=== PATIENT | female | born 1980 | race Caucasian/White ===

== ENCOUNTER 2017-06-16 22:16 | Emergency (ER) | payer BC, MEDICAID, OTHER ==
[~2017-06-16] VITALS: Ht 154.9 cm; Wt 74.8 kg
[~2017-06-16 22:16] MED LIST: CEPH-38 PO; IBP600T1 PO; OCP; OXYC-12 PO; TRAM-21 PO; TYLENOL SINUS
--- OUTSIDE RECORDS SUMMARY | 2017-06-16 22:21 | XMS REPORT ---
Author Author NAKITA CHIN Organization [facility] Address [address] [place] [address] Care Team Providers Care Garment Looper Name Role Phone NAKITA CHIN Unavailable PROBLEMS Type Condition ICD9-CM Code [id number] Code Onset Dates Condition Status SNOMED Code Problem Allergic rhinitis, unspecified allergic rhinitis trigger, unspecified rhinitis seasonality J30.9 Active 70521606 Problem Unspecified infective otitis externa 380.10 Active 17429164 Problem Acute pharyngitis 462 Active 252319770 Problem Acute upper respiratory infections of unspecified site 465.9 Active [id number] ALLERGIES No Known Allergies SOCIAL HISTORY Never Assessed PLAN OF CARE Activity Details Follow Up prn Reason: VITAL SIGNS Height 61 in 2016-03-27 Weight 155.2 lbs 2016-03-27 Temperature 97.3 degrees Fahrenheit 2016-03-27 Heart Rate 80 bpm 2016-03-27 Respiratory Rate 20 2016-03-27 BMI 29.32 kg/m2 2016-03-27 Blood pressure systolic 118 mmHg 2016-03-27 Blood pressure diastolic 80 mmHg 2016-03-27 MEDICATIONS Unknown Medications RESULTS No Results PROCEDURES No Known procedures IMMUNIZATIONS No Known Immunizations MEDICAL (GENERAL) HISTORY Type Description Date Surgical History C- section 2000 Surgical History 2007 Surgical History 2010
--- OUTSIDE RECORDS SUMMARY | 2017-06-16 22:21 | XMS REPORT ---
Author Author KAT RUDOLPH [facility] Address [address] [place] [address] Care Team Providers Care Senior Electrical Design Engineer Name Role Phone KAT RUDOLPH Unavailable PROBLEMS Type Condition ICD9-CM Code [id number] Code Onset Dates Condition Status SNOMED Code Problem Allergic rhinitis, unspecified allergic rhinitis trigger, unspecified rhinitis seasonality J30.9 Active 79880307 Problem Unspecified infective otitis externa 380.10 Active 30754877 Problem Acute pharyngitis 462 Active 858474555 Problem Acute upper respiratory infections of unspecified site 465.9 Active [id number] ALLERGIES No Information SOCIAL HISTORY Never Assessed PLAN OF CARE VITAL SIGNS MEDICATIONS No Known Medications RESULTS No Results PROCEDURES No Known procedures IMMUNIZATIONS No Known Immunizations MEDICAL (GENERAL) HISTORY Type Description Date Surgical History C- section 2000 Surgical History 2007 Surgical History 2010
--- OUTSIDE RECORDS SUMMARY | 2017-06-16 22:21 | XMS REPORT | Continuity of Care Document ---
Author Author [facility] Address Unknown Phone Unavailable Allergies Active Description Code Type Severity Reaction Onset Reported/Identified Relationship to Patient Clinical Status Yes No Known Drug Allergies [id number] Drug Allergy Unknown N/A 07/08/2007 Yes NKANo Known Allergies NKA Miscellaneous Allergy Mild N/A 09/10/2008 Medications There is no data. Problems Date Dx Coded Attending Type Code Diagnosis Diagnosed By 09/10/2008 Ot 462 11/09/2010 Ot 654.21 11/09/2010 Ot 656.61 11/09/2010 Ot V06.1 11/09/2010 Ot V27.0 07/29/2012 465.9 UPPER RESPIRATORY INFECTION 07/29/2012 SHANTHI BECKMAN APRN 465.9 UPPER RESPIRATORY INFECTION 09/16/2013 SHANTHI BECKMAN APRN 380.10 OTITIS EXTERNA LEFT 09/16/2013 SHANTHI BECKMAN APRN 462 ACUTE PHARYNGITIS 05/24/2014 Ot 654.23 05/24/2014 Ot V72.83 05/24/2014 Ot V22.1 05/24/2014 Ot 654.23 05/24/2014 Ot V72.83 05/24/2014 Ot V74.8 Procedures Code [place] [id number] STREP A (IN-HOUSE) 09/16/2013 Results There is no data. Encounters ACCT No. Visit Date/Time Discharge Status Pt. Type Provider Facility Loc./Unit Complaint [id number] 09/16/2013 16:49:00 09/16/2013 23:59:59 [facility] Outpatient SHANTHI BECKMAN APRN [id number] 07/29/2012 09:19:00 Document Registration [id number] 05/24/2014 10:45:00 Document Registration [id number] 05/24/2014 10:45:00 Document Registration [id number] 05/24/2014 10:45:00 Document Registration [id number] 05/24/2014 10:44:00 Document Registration [id number] 05/24/2014 10:44:00 Document Registration [id number] 05/24/2014 10:44:00 Document Registration [id number] 11/07/2010 05:43:00 Document Registration [id number] 11/01/2010 12:51:00 Document Registration [id number] 11/19/2016 10:00:00 11/19/2016 23:59:59 [facility] Outpatient KAT RUDOLPH DO [facility]
[2017-06-16] MEDS ORDERED: NORG1TAB14 PO (23:04)
--- NOTE | 2017-06-16 23:31 | ED Lower Extremity ---
General Chief Complaint: Lower Extremity Stated Complaint: R LEG PAIN/SWELLING Nursing Triage Note: PT PRESENTS TO ER WITH COMPLAINT OF RIGHT LEG PAIN AND SWELLING. STATES THE PAIN STARTED YESTERDYA AND HAS PROGRESSIVELY WORSENED. STATES SHE HAS ALSO NOTICED SWELLING. Nursing Sepsis Screen: No Definite Risk Source: patient Exam Limitations: no limitations History of Present Illness Date Seen by Provider: Jun 16, 2017 Time Seen by Provider: 23:19 Initial Comments The patient presents to ER by private conveyance with a chief complaint that she noticed today her left leg was swollen more than the right leg. It is not red nor painful. She says sometimes she hurts a little bit when she stands on it and she is on her feet all day at work. She does not smoke cigarettes or have a history of DVTs or clots or pulmonary embolisms in herself or her primary family however she says she takes oral contraceptives and is concerned her she might have a clot so she came to have it checked out. She's had no recent injury, fall or other trauma. She is not coughing nor does she feel short of breath. Allergies and Home Medications Allergies Coded Allergies: NKANo Known Allergies (Unverified Allergy, Mild, 09/10/08) No Known Drug Allergies (Verified , 07/08/07) Patient Home Medication List Home Medication List Reviewed: Yes Constitutional: No chills, No fever EENTM: No ear discharge, No ear pain Respiratory: No cough, No short of breath Cardiovascular: No chest pain, No palpitations Gastrointestinal: No abdominal pain, No constipation, No nausea Genitourinary: No discharge, No dysuria Past Uehbrqu-Xxxrwf-Wqzqid Hx Patient Social History Alcohol Use: Denies Use Recreational Drug Use: No Smoking Status: Never a Smoker Recent Foreign Travel: No Contact w/Someone Who Travel: No Recent Infectious Disease Expo: No Recent Hopitalizations: No () Immunizations Up To Date PED Vaccines UTD: Yes Past Medical History Surgeries: Yes (2 C-SECTIONS) Respiratory: No Cardiac: No Neurological: No Reproductive Disorders: Yes Sexually Transmitted Disease: Yes (HPV) Gastrointestinal: Yes Musculoskeletal: No Endocrine: No Psychosocial: Yes Blood Disorders: No Physical Exam Vital Signs Vital Signs - First Documented 06/16/17 22:54 Temp 98.0 Pulse 104 Resp 20 B/P (MAP) 153/101 (118) Pulse Ox 100 O2 Delivery Room Air Capillary Refill : Less Than 3 Seconds General Appearance: WD/WN, no apparent distress HEENT: PERRL/EOMI, pharynx normal Neck: non-tender, normal inspection Cardiovascular: normal peripheral pulses, regular rate, rhythm Respiratory: chest non-tender, lungs clear, normal breath sounds Gastrointestinal: normal bowel sounds, non tender, soft Hips: bilateral hip non-tender, bilateral hip normal inspection, bilateral hip normal range of motion, bilateral hip no evidence of injury Legs: bilateral leg non-tender, bilateral leg normal inspection, bilateral leg normal range of motion, bilateral leg no evidence of injury, bilateral leg other (Bilateral legs measure 37.57 m rate is diameter in the calf. Negative for Homans sign. No nodularity, tenderness, erythema in either calf.) Knees: bilateral knee non-tender, bilateral knee normal inspection, bilateral knee normal range of motion, bilateral knee no evidence of injury Ankles: bilateral ankle non-tender, bilateral ankle normal inspection, bilateral ankle normal range of motion, bilateral ankle no evidence of injury Progress/Results/Core Measures Lab Results Laboratory Tests Test 06/16/17 23:33 Range/Units White Blood Count 11.4 H 4.3-11.0 10^3/uL Red Blood Count 4.78 4.35-5.85 10^6/uL Hemoglobin 13.1 11.5-16.0 G/DL Hematocrit 40 35-52 % Mean Corpuscular Volume 84 80-99 FL Mean Corpuscular Hemoglobin 27 25-34 PG Mean Corpuscular Hemoglobin Concent 33 32-36 G/DL Red Cell Distribution Width 12.6 10.0-14.5 % Platelet Count 309 130-400 10^3/uL Mean Platelet Volume 9.8 7.4-10.4 FL Neutrophils (%) (Auto) 61 42-75 % Lymphocytes (%) (Auto) 31 12-44 % Monocytes (%) (Auto) 6 0-12 % Eosinophils (%) (Auto) 1 0-10 % Basophils (%) (Auto) 0 0-10 % Neutrophils # (Auto) 6.9 1.8-7.8 X 10^3 Lymphocytes # (Auto) 3.6 1.0-4.0 X 10^3 Monocytes # (Auto) 0.7 0.0-1.0 X 10^3 Eosinophils # (Auto) 0.1 0.0-0.3 10^3/uL Basophils # (Auto) 0.0 0.0-0.1 10^3/uL D-Dimer 0.29 0.00-0.49 UG/ML My Orders Orders - CARLOS SLOAN Cbc With Automated Diff (06/16/17 23:21) Fibrin Degradation Products (06/16/17 23:21) Saline Lock/Iv-Start (06/16/17 23:36) Vital Signs/I&O 06/16/17 22:54 Temp 98.0 Pulse 104 Resp 20 B/P (MAP) 153/101 (118) Pulse Ox 100 O2 Delivery Room Air Blood Pressure Mean: 118 Progress Note : Time: 23:30 Progress Note The patient states she's having quite a bit of anxiety about this after we discussed this she is still concerned that there might be something going on her leg. I have offered her a d-dimer blood test. It is not significantly elevated and our workup was done. Departure Impression Primary Impression: Leg pain, left Disposition: 01 HOME, SELF-CARE Condition: Stable Departure-Patient Inst. Decision time for Depature: 00:07 Referrals: NO,LOCAL PHYSICIAN (PCP) Primary Care Physician MAY LUA DO (Family) Primary Care Physician Patient Instructions: NO INSTRUCTIONS GIVEN Add. Discharge Instructions: Use Tylenol and Motrin as needed for your leg pain and it is not going away in a couple days or if it gets worse follow-up with your primary care provider for further evaluation. All discharge instructions reviewed with patient and/or family. Voiced understanding. CARLOS SLOAN Jun 16, 2017 23:31
[2017-06-16 23:38] LABS: BASOPHILS % (AUTO) 0 % (0-10); EOSINOPHILS # (AUTO) 0.1 10^3/uL (0.0-0.3); EOSINOPHILS % (AUTO) 1 % (0-10); HEMATOCRIT 40 % (35-52); HEMOGLOBIN 13.1 G/DL (11.5-16.0); LYMPHOCYTES # (AUTO) 3.6 X 10^3 (1.0-4.0); LYMPHOCYTES % (AUTO) 31 % (12-44); MEAN CORPUSCULAR HEMOGLOBIN 27 PG (25-34); MEAN CORPUSCULAR HGB CONC 33 G/DL (32-36); MEAN CORPUSCULAR VOLUME 84 FL (80-99); MEAN PLATELET VOLUME 9.8 FL (7.4-10.4); MONOCYTES # (AUTO) 0.7 X 10^3 (0.0-1.0); MONOCYTES % (AUTO) 6 % (0-12); NEUTROPHILS # (AUTO) 6.9 X 10^3 (1.8-7.8); NEUTROPHILS % (AUTO) 61 % (42-75); PLATELET COUNT 309 10^3/uL (130-400); RED BLOOD COUNT 4.78 10^6/uL (4.35-5.85); RED CELL DISTRIBUTION WIDTH 12.6 % (10.0-14.5); WHITE BLOOD COUNT 11.4 10^3/uL (4.3-11.0)
[2017-06-17 00:15] VITALS: BP 144/98
== END 2017-06-17 00:15 | disposition home or self-care (01) ==
LOC: EDUNIT# 22:16 → ER 22:18
DX: M79.605 Pain in left leg (principal); Z87.59 Personal history of other complications of pregnancy, childbirth and the puerperium; Z86.19 Personal history of other infectious and parasitic diseases
CPT/HCPCS: 36415; 85025; 85379